=== PATIENT | female | born 1975 | race Caucasian/White ===

== ENCOUNTER 2023-03-10 07:28 | Emergency (ER) | payer OTHER ==
[~2023-03-10] VITALS: Ht 172.7 cm; Wt 64.9 kg
[2023-03-10 07:41] VITALS: BP 113/78; PULSE 92; RESP 14; TEMP 97; O2SAT 97
[2023-03-10 10:24] LABS: APPEARANCE,URINE CLEAR (CLEAR); BILIRUBIN,URINE NEGATIVE (NEGATIVE); BLOOD, URINE NEGATIVE (NEGATIVE); COLOR,URINE YELLOW (YELLOW); LEUKOCYTE ESTERASE ,URINE NEGATIVE (NEGATIVE); NITRITE, URINE NEGATIVE (NEGATIVE); PROTEIN,URINE NEGATIVE (NEGATIVE); UGLUCOSE NEGATIVE (NEGATIVE); UROBILINOGEN,URINE 0.2 EU/dL (0.2 - 1)
[2023-03-10] MEDS ORDERED: FLUC150T PO (10:50)
[2023-03-10 16:20] VITALS: BP 113/78; PULSE 92; RESP 14; TEMP 97; O2SAT 97
== END 2023-03-10 10:56 | disposition home or self-care (01) ==
LOC: MED 07:28
DX: N93.9 Abnormal uterine and vaginal bleeding, unspecified (principal); F17.200 Nicotine dependence, unspecified, uncomplicated; Z79.899 Other long term (current) drug therapy; Z88.0 Allergy status to penicillin
CPT/HCPCS: 81003; 81025; 87070; 87210; 87491; 99283